=== PATIENT | female | born 1945 | race Caucasian/White ===

== ENCOUNTER → 2016-10-19 | Outpatient (CLI) | payer MEDICARE, BC ==
[2015-01-24 10:45] VITALS: BP 170/64
[~2016-10-19] MED LIST: ASPIRIN E.C. 8181 MG PO; CALCIUM 600600 M2 PO; FISH OIL500 M1 PO; MULTIVITAMIN1 SGL PO
== END ==
LOC: LAB 10:04
DX: Z00.00 Encounter for general adult medical examination without abnormal findings (principal); R73.02 Impaired glucose tolerance (oral); I10 Essential (primary) hypertension; E78.2 Mixed hyperlipidemia

== ENCOUNTER → 2016-11-17 | Outpatient (CLI) | payer MEDICARE, BC ==
[2015-01-24 10:45] VITALS: BP 170/64
== END ==
LOC: MAMMO 08:24
DX: Z12.31 Encounter for screening mammogram for malignant neoplasm of breast (principal); Z00.00 Encounter for general adult medical examination without abnormal findings; R92.2 Inconclusive mammogram
CPT/HCPCS: G0202

== ENCOUNTER → 2017-03-10 | Outpatient (CLI) | payer MEDICARE, BC ==
[2015-01-24 10:45] VITALS: BP 170/64
== END ==
LOC: LAB 12:37
DX: G62.9 Polyneuropathy, unspecified (principal); R20.2 Paresthesia of skin; R20.0 Anesthesia of skin

== ENCOUNTER → 2017-11-16 | Outpatient (CLI) | payer MEDICARE, BC ==
[2015-01-24 10:45] VITALS: BP 170/64
[2017-11-16 09:54] LABS: HEMATOCRIT 38.3 % (37.0-47.0); HEMOGLOBIN 12.6 g/dL (12.5-16.0); MEAN CELL VOLUME 97 fl (78-100); MEAN CORPUSCULAR HEMOGLOBIN 32 pg (27-31); MEAN CORPUSCULAR HGB CONC 33 g/dL (33-37); MEAN PLATELET VOLUME 8.6 fl (7.4-10.4); PLATELET COUNT 137 K/mm3 (130-400); RED BLOOD COUNT 3.94 M/mm3 (4.10-5.30); RED CELL DISTRIBUTION WIDTH 12.4 % (11.5-14.5); WHITE BLOOD COUNT 4.8 K/mm3 (4.8-10.8)
[2017-11-16 10:24] LABS: ALBUMIN 4.1 g/dL (3.5-5.0); BUN/CREATININE RATIO 22.8 (6.0-26.0); CALCIUM 9.3 mg/dL (8.4-10.2); TOTAL BILIRUBIN 0.7 mg/dL (0.2-1.3); TOTAL PROTEIN 7.5 g/dL (6.3-8.2)
[2017-11-16 11:51] LABS: LYMPHOCYTE 42 % (20-51); NEUTROPHILS 43 % (42-75)
[2017-11-16 11:52] LABS: MONOCYTE 14 % (3-10)
== END ==
LOC: LAB 09:27
PROVIDERS: Nurse Practitioner Family
DX: Z00.00 Encounter for general adult medical examination without abnormal findings (principal); I10 Essential (primary) hypertension; E78.2 Mixed hyperlipidemia; R73.02 Impaired glucose tolerance (oral)

== ENCOUNTER 2017-12-09 18:01 | Emergency (ER) | payer MEDICARE, BC ==
[~2017-12-09] VITALS: Ht 162.6 cm; Wt 77.7 kg
[2017-12-09] MEDS ORDERED: QBRELIS1 MG/1 ML PO (18:06)
[2017-12-09 18:58] LABS: HEMATOCRIT 36.3 % (37.0-47.0); HEMOGLOBIN 12.3 g/dL (12.5-16.0); MEAN CELL VOLUME 97 fl (78-100); MEAN CORPUSCULAR HEMOGLOBIN 33 pg (27-31); MEAN CORPUSCULAR HGB CONC 34 g/dL (33-37); PLATELET COUNT 125 K/mm3 (130-400); RED BLOOD COUNT 3.74 M/mm3 (4.10-5.30); RED CELL DISTRIBUTION WIDTH 12.6 % (11.5-14.5); WHITE BLOOD COUNT 11.4 K/mm3 (4.8-10.8)
[2017-12-09 19:10] LABS: ALBUMIN 4.2 g/dL (3.5-5.0); BUN/CREATININE RATIO 15.2 (6.0-26.0); POTASSIUM 3.7 mmol/L (3.6-5.0); TOTAL BILIRUBIN 1.2 mg/dL (0.2-1.3); TOTAL PROTEIN 7.9 g/dL (6.3-8.2)
[2017-12-09 19:32] LABS: LYMPHOCYTE 21 % (20-51); MONOCYTE 26 % (3-10); NEUTROPHILS 52 % (42-75)
[2017-12-09 19:45] VITALS: BP 150/70
== END 2017-12-09 19:45 | disposition short-term general hospital (02) ==
LOC: ED 18:01
PROVIDERS: Physician Assistant
DX: K35.80 Unspecified acute appendicitis (principal); I10 Essential (primary) hypertension; Z79.899 Other long term (current) drug therapy; Z79.82 Long term (current) use of aspirin
CPT/HCPCS: J3010; Q9967

== ENCOUNTER → 2018-11-23 | Outpatient (CLI) | payer MEDICARE, BC ==
[~2018-11-23] MED LIST changes: +QBRELIS1 MG/1 ML PO
[2018-11-23 09:07] LABS: HEMATOCRIT 38.8 % (37.0-47.0); HEMOGLOBIN 12.7 g/dL (12.5-16.0); MEAN CELL VOLUME 96 fl (78-100); MEAN CORPUSCULAR HEMOGLOBIN 31 pg (27-31); MEAN CORPUSCULAR HGB CONC 33 g/dL (33-37); MEAN PLATELET VOLUME 8.6 fl (7.4-10.4); PLATELET COUNT 131 K/mm3 (130-400); RED BLOOD COUNT 4.06 M/mm3 (4.10-5.30); WHITE BLOOD COUNT 4.6 K/mm3 (4.8-10.8)
[2018-11-23 09:22] LABS: ALBUMIN 4.1 g/dL (3.4-4.8); POTASSIUM 4.4 mmol/L (3.5-5.1); TOTAL BILIRUBIN 0.6 mg/dL (0.2-1.2); TOTAL PROTEIN 7.4 g/dL (6.2-8.1)
[2018-11-23 11:19] LABS: LYMPHOCYTE 38 % (20-51); MONOCYTE 13 % (3-10); NEUTROPHILS 48 % (42-75)
== END ==
LOC: LAB 08:54
PROVIDERS: Physician Assistant
DX: Z00.00 Encounter for general adult medical examination without abnormal findings (principal); Z12.31 Encounter for screening mammogram for malignant neoplasm of breast; E74.39 Other disorders of intestinal carbohydrate absorption; I10 Essential (primary) hypertension; E78.5 Hyperlipidemia, unspecified; R00.1 Bradycardia, unspecified; Z78.0 Asymptomatic menopausal state

== ENCOUNTER → 2018-11-30 | Outpatient (CLI) | payer MEDICARE, BC | LOC: MAMMO 11-29 09:15 | DX: Z12.31 Encounter for screening mammogram for malignant neoplasm of breast (principal) ==

== ENCOUNTER → 2020-03-19 | Outpatient (CLI) | payer MEDICARE, BC ==
[2020-03-19 11:29] LABS: HEMATOCRIT 37.5 % (37.0-47.0); HEMOGLOBIN 12.4 g/dL (12.5-16.0); MEAN CELL VOLUME 96 fl (78-100); MEAN CORPUSCULAR HEMOGLOBIN 32 pg (27-31); MEAN CORPUSCULAR HGB CONC 33 g/dL (33-37); MEAN PLATELET VOLUME 9.3 fl (7.4-10.4); PLATELET COUNT 127 K/mm3 (130-400); RED BLOOD COUNT 3.89 M/mm3 (4.10-5.30); RED CELL DISTRIBUTION WIDTH 11.8 % (11.5-14.5)
[2020-03-19 11:37] LABS: ALBUMIN 4.2 g/dL (3.4-4.8); POTASSIUM 4.1 mmol/L (3.5-5.1)
[2020-03-19 11:38] LABS: CALCIUM 9.5 mg/dL (8.3-10.5)
[2020-03-19 11:42] LABS: LYMPHOCYTE 36 % (20-51); MONOCYTE 18 % (3-10); NEUTROPHILS 46 % (42-75); TOTAL BILIRUBIN 0.9 mg/dL (0.2-1.2)
== END ==
LOC: LAB 11:14
PROVIDERS: Physician Assistant
DX: Z00.00 Encounter for general adult medical examination without abnormal findings (principal); I10 Essential (primary) hypertension; Z12.39 Encounter for other screening for malignant neoplasm of breast; E78.5 Hyperlipidemia, unspecified; Z78.0 Asymptomatic menopausal state

== ENCOUNTER → 2020-04-01 | Outpatient (CLI) | payer MEDICARE, BC | LOC: MAMMO 09:51 | DX: Z00.00 Encounter for general adult medical examination without abnormal findings (principal); Z12.31 Encounter for screening mammogram for malignant neoplasm of breast ==

== ENCOUNTER 2021-06-16 10:56 | Emergency (ER) | payer MEDICARE, BC ==
[~2021-06-16] VITALS: Ht 162.6 cm; Wt 70.9 kg
[2021-06-16 11:50] LABS: D-DIMER 2.08 mg/L FEU (0.15-0.50)
[2021-06-16 11:52] LABS: HEMATOCRIT 30.1 % (37.0-47.0); HEMOGLOBIN 10.2 g/dL (12.5-16.0); MEAN CELL VOLUME 95 fl (78-100); MEAN CORPUSCULAR HEMOGLOBIN 32 pg (27-31); MEAN CORPUSCULAR HGB CONC 34 g/dL (33-37); MEAN PLATELET VOLUME 9.8 fl (7.4-10.4); PLATELET COUNT 221 K/mm3 (130-400); RED BLOOD COUNT 3.18 M/mm3 (4.10-5.30); RED CELL DISTRIBUTION WIDTH 12.4 % (11.5-14.5); WHITE BLOOD COUNT 13.9 K/mm3 (4.8-10.8)
[2021-06-16 12:03] LABS: ALBUMIN 3.7 g/dL (3.4-4.8)
[2021-06-16 12:04] LABS: POTASSIUM 3.3 mmol/L (3.5-5.1); SODIUM 134 mmol/L (136-145)
[2021-06-16 12:05] LABS: CALCIUM 9.5 mg/dL (8.3-10.5)
[2021-06-16 12:06] LABS: GLUCOSE 115 mg/dL (65-105); TOTAL PROTEIN 7.9 g/dL (6.2-8.1)
[2021-06-16 12:07] LABS: CARBON DIOXIDE 21 mmol/L (23-31)
[2021-06-16 12:08] LABS: TOTAL BILIRUBIN 0.6 mg/dL (0.2-1.2)
[2021-06-16 12:10] LABS: TROPONIN-I < 0.030 ng/mL (<0.030)
[2021-06-16 12:11] LABS: AST-SGOT 37 U/L (5-34)
[2021-06-16 12:12] LABS: ALT/SGPT 24 U/L (0-55); BAND 5 % (0-10); LYMPHOCYTE 10 % (20-51); MONOCYTE 15 % (3-10); NUCLEATED RED BLOOD CELL 2 (0-6)
[2021-06-16 12:13] LABS: NEUTROPHILS 69 % (42-75)
[2021-06-16 13:08] LABS: URINE APPEARANCE CLEAR; URINE BILIRUBIN NEGATIVE (NEGATIVE); URINE BLOOD TRACE (NEGATIVE); URINE COLOR YELLOW; URINE GLUCOSE NEGATIVE (NEGATIVE); URINE KETONE NEGATIVE (NEGATIVE); URINE LEUKOCYTE ESTERASE NEGATIVE (NEGATIVE); URINE NITRATE NEGATIVE (NEGATIVE); URINE PROTEIN(semi-quant) TRACE (NEGATIVE); URINE UROBILINOGEN NORMAL (NORMAL)
[2021-06-16] MEDS ORDERED: HYDROCHLOROTHIA1 T14 PO (13:48)
[2021-06-16] MEDS ORDERED: FAMOTIDINE20 MG PO (13:49)
[2021-06-16 17:27] VITALS: BP 134/82
== END 2021-06-16 17:15 | disposition short-term general hospital (02) ==
LOC: ED 10:56
PROVIDERS: Family Medicine
DX: U07.1 COVID-19 (principal); J12.82 Pneumonia due to coronavirus disease 2019; N17.9 Acute kidney failure, unspecified; K35.80 Unspecified acute appendicitis; R79.1 Abnormal coagulation profile; R79.89 Other specified abnormal findings of blood chemistry; I10 Essential (primary) hypertension; K21.9 Gastro-esophageal reflux disease without esophagitis; Z79.899 Other long term (current) drug therapy
CPT/HCPCS: J0696; J1100; J7030; J7050